=== PATIENT | female | born 1975 | race Caucasian/White ===

== ENCOUNTER 2016-09-01 13:53 | Emergency (ER) | payer OTHER ==
--- NOTE | 2016-09-01 14:20 | ERPHSYRPT ---
- History of Present Illness Time Seen by Provider: 09/01/16 14:16 Source: patient Exam Limitations: no limitations Patient Subjective Stated Complaint: pt states she has had a rash to bilateral lower legs for the past week. worse over the past 2 days. Triage Nursing Assessment: pt pink, warm, dry. bilateral red open areas to bilateral lower legs. Physician History: pt states she has had a rash to bilateral lower legs for the past week. worse over the past 2 days. Occurred: last week Allergies/Adverse Reactions: iron Adverse Reaction (Verified 09/01/16 14:09) Hx Tetanus, Diphtheria Vaccination/Date Given: Yes (up to date) Hx Influenza Vaccination/Date Given: No Hx Pneumococcal Vaccination/Date Given: No Immunizations Up to Date: Yes - Review of Systems Constitutional: No Symptoms Respiratory: No Symptoms Skin: Rash - Past Medical History Pertinent Past Medical History: Yes Neurological History: No Pertinent History ENT History: No Pertinent History Cardiac History: No Pertinent History Respiratory History: No Pertinent History Endocrine Medical History: No Pertinent History Musculoskeletal History: No Pertinent History GI Medical History: No Pertinent History History: No Pertinent History Psycho-Social History: No Pertinent History Female Reproductive Disorders: No Pertinent History - Past Surgical History Past Surgical History: Yes Musculoskeletal: Orthopedic Surgery Female Surgical History: Hysterectomy, Tubal Ligation, Other - Social History Smoking Status: Current every day smoker How long have you smoked: 18 Exposure to second hand smoke: Yes Drug Use: none Patient Lives Alone: No - Nursing Vital Signs Nursing Vital Signs: Initial Vital Signs Temperature 98.2 F Temperature Source Oral Pulse Rate 86 Respiratory Rate 18 Blood Pressure [Right Arm] 134/87 Pain Intensity 5 - Physical Exam General Appearance: no apparent distress Eyes, Ears, Nose, Throat Exam: normal ENT inspection Ankle Exam: bilateral ankle: other (rash on medial side of upper ankles) SpO2: 99 Oxygen Delivery: Room Air - Course Nursing assessment & vital signs reviewed: Yes - Progress Progress: unchanged Counseled pt/family regarding: diagnosis, need for follow-up - Departure Time of Disposition: 14:18 Departure Disposition: Home Clinical Impression: Dermatitis Condition: Stable Critical Care Time: No Referrals: ASHLEY MERRITT [Primary Care Provider] - Instructions: Atopic Dermatitis - Adult Additional Instructions: RASH 1. Depending on the reason for the rash, the instructions will differ. 2. If an antibiotic has been prescribed, take it as directed until gone. 3. If anti-fungals or shampoos are prescribed, use only as directed and follow specific instructions on package container. 4. Avoid hot showers/baths, as this may increase itching. 5. Calamine lotion or Aveeno Oatmeal baths may help itching. 6. See your family physician if these signs or symptoms persist for more than four days. Prescriptions: Mupirocin [Bactroban OINTMENT] 1 gm TP BID #60 tube Cephalexin Mh 500 mg [Keflex 500 mg] 500 mg PO Q6H #40 capsule Triamcinolone 0.1% Cream [Kenalog 0.1% Cream 15 gm] 1 gm TP QID #60 cream
[2016-09-01 14:30] VITALS: BP 122/85; PULSE 81; O2SAT 100
== END 2016-09-01 14:30 | disposition home or self-care (01) ==
LOC: ED 13:53
DX: L30.9 Dermatitis, unspecified (principal)
CPT/HCPCS: 99283

== ENCOUNTER 2017-01-27 12:05 | Emergency (ER) | payer OTHER | END 2017-01-27 12:20 | disposition left against medical advice (07) | LOC: ED 12:05 | DX: Z53.9 Procedure and treatment not carried out, unspecified reason (principal) ==

== ENCOUNTER 2017-11-28 06:28 | Emergency (ER) | payer OTHER ==
[2017-11-28 06:52] VITALS: BP 150/94; PULSE 81; O2SAT 97
--- NOTE | 2017-11-28 07:00 | ERPHSYRPT ---
- History of Present Illness Time Seen by Provider: 11/28/17 06:45 Source: patient Exam Limitations: no limitations Patient Subjective Stated Complaint: pt is alert and oriented. pt is ambulatory with a steady gait. pt comes in after being hit in the mouth by her horse 4-5 days ago. she has swelling to the left side of her lower face and jaw. upon inspection pt has 2 and one half teeth that are brown and blackened at the lower portion and appear to be decaying on her lower gum. Triage Nursing Assessment: see above Physician History: 42 y/o white female presents with 4 day h/o left lower toothache. pt has poor dentition and was also hit in the same area left lower jaw. jaw pain mild but toothache has persisted. waiting to hear from dentist for appt. Timing/Duration: persistent, days (4 days) Severity: mild ENT Location: dental Modifying Factors: Improves With: nothing, other (tried oragel but did not help) Associated Symptoms: denies symptoms Allergies/Adverse Reactions: iron Adverse Reaction (Verified 09/01/16 14:09) Hx Tetanus, Diphtheria Vaccination/Date Given: No Hx Influenza Vaccination/Date Given: No Hx Pneumococcal Vaccination/Date Given: No Immunizations Up to Date: Yes - Review of Systems Constitutional: No Symptoms Eyes: No Symptoms Ears, Nose, & Throat: Mouth Pain, Other (intra oral left lower gums/teeth) Respiratory: No Symptoms Cardiac: No Symptoms Abdominal/Gastrointestinal: No Symptoms Genitourinary Symptoms: No Symptoms Musculoskeletal: No Symptoms Skin: No Symptoms Neurological: No Symptoms Psychological: No Symptoms Endocrine: No Symptoms Hematologic/Lymphatic: No Symptoms Immunological/Allergic: No Symptoms - Past Medical History Pertinent Past Medical History: Yes Neurological History: No Pertinent History ENT History: No Pertinent History Cardiac History: No Pertinent History Respiratory History: No Pertinent History Endocrine Medical History: No Pertinent History Musculoskeletal History: No Pertinent History GI Medical History: No Pertinent History History: No Pertinent History Psycho-Social History: No Pertinent History Female Reproductive Disorders: Cervical Cancer - Past Surgical History Past Surgical History: Yes Musculoskeletal: Orthopedic Surgery Female Surgical History: Hysterectomy - Social History Smoking Status: Current every day smoker How long have you smoked: 18 Exposure to second hand smoke: Yes Drug Use: none Patient Lives Alone: No - Female History Hx Now: No - Nursing Vital Signs Nursing Vital Signs: Initial Vital Signs Pulse Rate 81 11/28/17 06:29 Respiratory Rate 18 11/28/17 06:29 Blood Pressure 150/94 11/28/17 06:29 O2 Sat by Pulse Oximetry 97 11/28/17 06:29 Pain Scale Pain Intensity 7 - Physical Exam Eye Exam: bilateral eye: normal inspection, PERRL, EOMI Ear Exam: bilateral ear: auricle normal Nasal Exam: normal inspection, No active bleeding, No discharge Throat Exam: pharynx normal, dental tenderness (poor dentition. 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, normal mood/affect, nml cerebellar function, nml station & gait Skin Exam: normal color, warm, dry SpO2 Interpretation: normal SpO2: 97 Oxygen Delivery: Room Air - Course Nursing assessment & vital signs reviewed: Yes Ordered Tests: Medication Summary Generic Name Dose Route Start Last Admin Trade Name Freq PRN Reason Stop Dose Admin Hydrocodone Bitart/Acetaminophen 1 tab 11/28/17 07:02 [place] 10/325 Mg Tablet PO 11/28/17 07:03 STAT ONE Amoxicillin 500 mg 11/28/17 07:03 Amoxil 500 Mg PO 11/28/17 07:04 STAT ONE - Progress Progress: unchanged Counseled pt/family regarding: diagnosis, need for follow-up - Departure Time of Disposition: 07:11 Departure Disposition: Home Clinical Impression: Pain, dental Condition: Stable Critical Care Time: No Additional Instructions: follow up with dentist for definitive care. add ibuprofen for pain Prescriptions: Amoxicillin 500 mg Cap [Amoxil 500 mg] 500 mg PO TID #30 capsule Tramadol HCl 50 mg [Ultram 50 mg] 50 mg PO TID PRN #15 tablet PRN Reason: Pain
[2017-11-28] MEDS ORDERED: Norco 10/325 MG Tablet PO ONE (07:02)
[2017-11-28] MEDS ORDERED: AMOXIL 500 MG PO ONE (07:03)
[2017-11-28] MEDS ORDERED: Norco 10/325 MG Tablet ONE (07:09)
[2017-11-28] MEDS ORDERED: AMOXIL 500 MG ONE (07:09)
== END 2017-11-28 07:31 | disposition home or self-care (01) ==
LOC: ED 06:28
DX: K08.89 Other specified disorders of teeth and supporting structures (principal); R68.84 Jaw pain
CPT/HCPCS: 99283; A9270-GY

== ENCOUNTER 2019-07-22 21:10 | Emergency (ER) | payer MEDICAID, OTHER ==
--- NOTE | 2019-07-22 21:23 | ERPHSYRPT ---
- History of Present Illness Time Seen by Provider: 07/22/19 21:12 Source: patient Exam Limitations: no limitations Physician History: Patient is here for left ankle swelling. Patient states that she is got a history of psoriasis. States that she is out of her medication at home. She noticed some redness, tenderness worsening over the past 2 to 3 days. Therefore , she arrives to the emergency department. No falls no trauma. No fever no chills no systemic signs of illness. Allergies/Adverse Reactions: iron Adverse Reaction (Verified 09/01/16 14:09) Hx Tetanus, Diphtheria Vaccination/Date Given: No Hx Influenza Vaccination/Date Given: No Hx Pneumococcal Vaccination/Date Given: No - Review of Systems Constitutional: No Fever, No Chills Eyes: No Symptoms Ears, Nose, & Throat: No Symptoms Respiratory: No Cough, No Dyspnea Cardiac: No Chest Pain, No Edema, No Syncope Abdominal/Gastrointestinal: No Abdominal Pain, No Nausea, No Vomiting, No Diarrhea Genitourinary Symptoms: No Dysuria Musculoskeletal: No Back Pain, No Neck Pain Skin: Other (Leg redness, tenderness), No Rash Neurological: No Dizziness, No Focal Weakness, No Sensory Changes Psychological: No Symptoms Endocrine: No Symptoms All Other Systems: Reviewed and Negative - Past Medical History Pertinent Past Medical History: Yes Neurological History: No Pertinent History ENT History: No Pertinent History Cardiac History: No Pertinent History Respiratory History: No Pertinent History Endocrine Medical History: No Pertinent History Musculoskeletal History: No Pertinent History GI Medical History: No Pertinent History History: No Pertinent History Psycho-Social History: No Pertinent History Female Reproductive Disorders: Cervical Cancer - Past Surgical History Past Surgical History: Yes Musculoskeletal: Orthopedic Surgery Female Surgical History: Hysterectomy - Social History Smoking Status: Current every day smoker How long have you smoked: 18 Exposure to second hand smoke: Yes Drug Use: none Patient Lives Alone: No - Physical Exam General Appearance: alert Eyes, Ears, Nose, Throat Exam: moist mucous membranes Neck Exam: non-tender, supple Cardiovascular/Respiratory Exam: chest non-tender, normal breath sounds, regular rate/rhythm, no respiratory distress Gastrointestinal/Abdominal Exam: non-tender, guarding Back Exam: normal inspection, No vertebral tenderness Neuro/Tendon Exam: normal sensation, normal motor functions Mental Status Exam: alert, oriented x 3, cooperative Skin Exam: normal color, warm, dry SpO2 Interpretation: normal Comments: Left leg no obvious deformity, sensation intact, 2+ capillary refill, 2 point tactile discrimination intact. 5 out of 5 strength. Full range of motion without pain. Compartments are soft, nontender. Overlying skin shows no tenting, bruising, ecchymosis. Patient has some redness, inflammation over the left medial ankle. Possible component of cellulitis. It is tender. - Progress Progress Note: 07/22/19 21:25 We will treat as psoriasis with possible cellulitis. Will give 5 days worth of steroids, doxycycline. Patient will need close follow-up with PCP. Return here for new or changing symptoms. Plan of care was discussed with patient and patient's family: all questions answered. They are agreeable to be discharged home and both verbal and printed discharge instructions were provided. The patient and patient's family agreed to seek outpatient follow up as discussed. They were given strict instructions to return to the emergency department for worsening symptoms or any other emergent concerns. They verbalized understanding. - Departure Departure Disposition: Home Clinical Impression: Cellulitis Condition: Stable Critical Care Time: No Referrals: ASHLEY MERRITT [Primary Care Provider] - Additional Instructions: See PCP for reexam in 24 to 48 hours. Return here for new or changing symptoms. Prescriptions: Doxycycline Hyclate 100 mg [Vibramycin 100 MG] 100 mg PO BID #14 tab Prednisone 10 mg [Deltasone 10 mg] 60 mg PO DAILY #12 tablet
[2019-07-22 21:30] VITALS: BP 134/95; PULSE 89; O2SAT 100
== END 2019-07-22 21:38 | disposition home or self-care (01) ==
LOC: ED 21:10
DX: L03.116 Cellulitis of left lower limb (principal)
CPT/HCPCS: 99283

== ENCOUNTER 2021-04-22 20:57 | Inpatient (IN) | payer MEDICAID, OTHER ==
[2021-04-22] MEDS ORDERED: Sodium Chloride 0.9% 1000 ML 1,000 ML IV STA (21:24)
[2021-04-22] MEDS ORDERED: Sodium Chloride 0.9% 1000 ML 1,000 ML ONE (21:30)
[2021-04-22 22:08] LABS: Hematocrit 43.2 % (35-47); Mean Cell Volume 89.4 fl (78-100); Mean Corpuscular Hgb Concent. 32.4 g/dl (32-36); Mean Platelet Volume 10.4 fl (7.5-11.0); Platelet Count 141 K/mm3 (150-450); Red Blood Count 4.83 M/mm3 (4.1-5.4); Red Cell Distribution Width 14.2 % (11.5-14.0); White Blood Count 5.4 K/mm3 (4.0-10.5)
[2021-04-22 22:35] LABS: INR 1.19 (0.8-3.0); PROTIME 14.1 SECONDS (9.4-12.5)
[2021-04-22 22:37] LABS: INFLUENZA A NEGATIVE (NEGATIVE); INFLUENZA B NEGATIVE (NEGATIVE); RESPIRATORY SYNCTIAL VIRUS NEGATIVE (Negative)
[2021-04-22 22:44] LABS: ALBUMIN 3.8 g/dL (3.5-5.0); ALKALINE PHOSPHATASE 56 U/L (38-126); ANION GAP 12.4 MEQ/L (5-15); BLOOD UREA NITROGEN 12 mg/dL (7-17); CHLORIDE 97 mmol/L (98-107); Carbon Dioxide 25 mmol/L (22-30); Creatinine 1 0.98 mg/dL (0.52-1.04); EST GLOMERULAR FILTRATION RATE > 60.0 ML/MIN; Glucose 101 mg/dL (74-106); NT PRO BNP 35.1 pg/mL (0-450); Potassium 3.9 mmol/L (3.5-5.1); SGOT/AST 55 U/L (14-36); SGPT/ALT 26 U/L (0-35); SODIUM 131 mmol/L (137-145); Total Protein 6.3 g/dL (6.3-8.2)
[2021-04-22 22:57] LABS: SARS-CoV-2 Xpert Express POSITIVE (NEGATIVE)
--- NOTE | 2021-04-22 23:10 | ERPHSYRPT ---
- History of Present Illness Time Seen by Provider: 04/22/21 21:50 Source: patient Exam Limitations: no limitations Patient Subjective Stated Complaint: pt states "I don't feel good." Triage Nursing Assessment: pt came into the er via wheelchair; pt is axo x4; c/o cough; pt states symptoms began 6 days ago; pt c/o N/V/D; c/o cough; c/o fever and chills; c/o headache and bodyache; pt states loss of taste and smell; pt is forcefully coughing and hacking; wheezing throughout all lobes; hyperactive bowel sounds in all quads; febrile 103.1; hypoxic at 86% on room air at time of arrival; pt put on 2 L nasal cannula and stating at 97% Physician History: Patient is a 45-year-old white female who presents with a 4-day to 6-day history of cough and congestion. She has had nausea vomiting and diarrhea for the past 2 days her temperature on arrival is 103.1 and her oxygen saturation on room air was 86 percent. Timing/Duration: day(s) (6) Cough Quality/Degree: productive cough Possible Cause: occasional episodes Modifying Factors: Improves With: coughing Associated Symptoms: fever, chest pain/soreness, cough, headache, other (Loss of taste and smell) Allergies/Adverse Reactions: iron Adverse Reaction (Verified 04/22/21 21:40) Home Medications: No Reportable Medications [No Reported Medications] 04/22/21 [History] Hx Tetanus, Diphtheria Vaccination/Date Given: No Hx Influenza Vaccination/Date Given: No Hx Pneumococcal Vaccination/Date Given: No Travel Risk - International Travel Have you traveled outside of the country in past 3 weeks: No - Coronavirus Screening Are you exhibiting any of the following symptoms?: Yes Symptoms: Fever, Cough: New Onset, Shortness of Breath, Vomiting/Diarrhea, Loss of Taste or Smell, Headaches/Body Aches/Fatigue Close contact with a COVID-19 positive Pt in past 14-21 Days: No - Vaccine Status Have you recieved a Covid-19 vaccination: No - Review of Systems Constitutional: No Fever, No Chills Eyes: No Symptoms Ears, Nose, & Throat: No Symptoms Respiratory: Cough, Dyspnea, Wheezing Cardiac: No Chest Pain, No Edema, No Syncope Abdominal/Gastrointestinal: Abdominal Pain, Nausea, Vomiting, Diarrhea Genitourinary Symptoms: No Dysuria Musculoskeletal: No Back Pain, No Neck Pain Skin: No Rash Neurological: No Dizziness, No Focal Weakness, No Sensory Changes Psychological: No Symptoms Endocrine: No Symptoms All Other Systems: Reviewed and Negative - Past Medical History Pertinent Past Medical History: Yes Neurological History: No Pertinent History ENT History: No Pertinent History Cardiac History: No Pertinent History Respiratory History: No Pertinent History Endocrine Medical History: No Pertinent History Musculoskeletal History: No Pertinent History GI Medical History: No Pertinent History History: No Pertinent History Psycho-Social History: No Pertinent History Female Reproductive Disorders: Cervical Cancer Other Medical History: anemia - Past Surgical History Past Surgical History: Yes Musculoskeletal: Orthopedic Surgery Female Surgical History: Hysterectomy - Social History Smoking Status: Former smoker How long have you smoked: 18 Exposure to second hand smoke: Yes Drug Use: none Patient Lives Alone: No - Female History Hx Now: No - Nursing Vital Signs Nursing Vital Signs: Initial Vital Signs Temperature 103.1 F 04/22/21 21:41 Pulse Rate 93 H 04/22/21 21:41 Respiratory Rate 24 04/22/21 21:41 Blood Pressure 103/73 04/22/21 21:41 O2 Sat by Pulse Oximetry 86 L 04/22/21 21:41 Pain Scale Pain Intensity 8 - Physical Exam General Appearance: mild distress Eye Exam: PERRL/EOMI, eyes nml inspection Ears, Nose, Throat Exam: normal ENT inspection, TMs normal, pharynx normal, moist mucous membranes Neck Exam: normal inspection, non-tender, supple, full range of motion Respiratory Exam: respiratory distress, crackles/rales, rhonchi, wheezing Cardiovascular Exam: regular rate/rhythm, normal heart sounds Gastrointestinal/Abdomen Exam: soft, No tenderness Back Exam: normal inspection, No CVA tenderness, No vertebral tenderness Extremity Exam: normal inspection, normal range of motion Neurologic Exam: alert, oriented x 3, cooperative, normal mood/affect, sensation nml, No motor deficits Skin Exam: normal color, warm, dry, No rash SpO2 Interpretation: hypoxic, O2 applied SpO2: 97 O2 Delivery: Nasal Cannula - Course Nursing assessment & vital signs reviewed: Yes EKG Interpreted by Me: RATE (92), NORMAL AXIS, NORMAL QRS, Non-specific ST Changes - Radiology Exams Chest X-ray Interpretation: Interpreted by me, Other (Bilateral basilar infiltrates) Ordered Tests: Active Orders 24 hr Category Date Time Status EKG-ER Only STAT Care 04/22/21 21:24 Active Oxygen-ED Only Nasal Cannula 4 lpm Care 04/22/21 21:24 Active CHEST 1 VIEW (PORTABLE) Stat Exams 04/22/21 21:25 Taken BLOOD CULTURE Stat Lab 04/22/21 22:20 Received CBC W DIFF Stat Lab 04/22/21 22:04 Completed CMP Stat Lab 04/22/21 22:20 Completed D-DIMER QUANTITATIVE Stat Lab 04/22/21 22:20 Completed Lactic Acid Stat Lab 04/22/21 22:00 Completed Manual Differential NC Stat Lab 04/22/21 22:04 Completed NT PRO BNP Stat Lab 04/22/21 22:20 Completed PROTIME WITH INR Stat Lab 04/22/21 22:20 Completed TROPONIN Q3H Lab 04/22/21 22:21 Completed TROPONIN Q3H Lab 04/23/21 00:30 Ordered TROPONIN Q3H Lab 04/23/21 03:30 Ordered TROPONIN Q3H Lab 04/23/21 06:30 Ordered TROPONIN Q3H Lab 04/23/21 09:30 Ordered UA W/RFX UR CULTURE Stat Lab 04/22/21 21:24 Ordered Medication Summary Discontinued Medications Generic Name Dose Route Start Last Admin Trade Name Freq PRN Reason Stop Dose Admin Sodium Chloride 1,000 mls @ 999 mls/hr 04/22/21 21:24 04/22/21 21:31 Sodium Chloride 0.9% 1000 Ml IV 04/22/21 22:24 999 mls/hr .Q1H1M STA Administration Sodium Chloride Confirm 04/22/21 21:30 Sodium Chloride 0.9% 1000 Ml Administered 04/22/21 21:31 Dose 1,000 mls @ ud .ROUTE .STK-MED ONE Lab/Rad Data: Laboratory Result Diagrams 04/22/21 22:04 04/22/21 22:20 Laboratory Results 04/22/21 04/22/21 04/22/21 Range/Units 22:21 22:20 22:20 WBC (4.0-10.5) K/mm3 RBC (4.1-5.4) M/mm3 Hgb (12.0-16.0) gm/dl Hct (35-47) % MCV (78-100) fl MCH (26-32) pg MCHC (32-36) g/dl RDW (11.5-14.0) % Plt Count (150-450) K/mm3 MPV (7.5-11.0) fl PT 14.1 H (9.4-12.5) SECONDS INR 1.19 (0.8-3.0) D-Dimer 581 H* (215-500) ng/mL Sodium 131 L (137-145) mmol/L Potassium 3.9 (3.5-5.1) mmol/L Chloride 97 L (98-107) mmol/L Carbon Dioxide 25 (22-30) mmol/L Anion Gap 12.4 (5-15) MEQ/L BUN 12 (7-17) mg/dL Creatinine 0.98 (0.52-1.04) mg/dL Estimated GFR > 60.0 ML/MIN Glucose 101 (74-106) mg/dL Lactic Acid (0.4-2.0) Calcium 8.0 L (8.4-10.2) mg/dL Total Bilirubin 0.50 (0.2-1.3) mg/dL AST 55 H (14-36) U/L ALT 26 (0-35) U/L Alkaline Phosphatase 56 (38-126) U/L Troponin I < 0.012 (0.000-0.034) ng/mL NT-Pro-B Natriuret Pep 35.1 (0-450) pg/mL Serum Total Protein 6.3 (6.3-8.2) g/dL Albumin 3.8 (3.5-5.0) g/dL Influenza Type A Ag (NEGATIVE) Influenza Type B Ag (NEGATIVE) RSV (PCR) (Negative) SARS-CoV-2 (PCR) (NEGATIVE) 04/22/21 04/22/21 04/22/21 Range/Units 22:04 22:00 21:40 WBC 5.4 (4.0-10.5) K/mm3 RBC 4.83 (4.1-5.4) M/mm3 Hgb 14.0 (12.0-16.0) gm/dl Hct 43.2 (35-47) % MCV 89.4 (78-100) fl MCH 29.0 (26-32) pg MCHC 32.4 (32-36) g/dl RDW 14.2 H (11.5-14.0) % Plt Count 141 L (150-450) K/mm3 MPV 10.4 (7.5-11.0) fl PT (9.4-12.5) SECONDS INR (0.8-3.0) D-Dimer (215-500) ng/mL Sodium (137-145) mmol/L Potassium (3.5-5.1) mmol/L Chloride (98-107) mmol/L Carbon Dioxide (22-30) mmol/L Anion Gap (5-15) MEQ/L BUN (7-17) mg/dL Creatinine (0.52-1.04) mg/dL Estimated GFR ML/MIN Glucose (74-106) mg/dL Lactic Acid 1.2 (0.4-2.0) Calcium (8.4-10.2) mg/dL Total Bilirubin (0.2-1.3) mg/dL AST (14-36) U/L ALT (0-35) U/L Alkaline Phosphatase (38-126) U/L Troponin I (0.000-0.034) ng/mL NT-Pro-B Natriuret Pep (0-450) pg/mL Serum Total Protein (6.3-8.2) g/dL Albumin (3.5-5.0) g/dL Influenza Type A Ag NEGATIVE (NEGATIVE) Influenza Type B Ag NEGATIVE (NEGATIVE) RSV (PCR) NEGATIVE (Negative) SARS-CoV-2 (PCR) POSITIVE A (NEGATIVE) - Progress Progress: unchanged Air Movement: fair Blood Culture(s) Obtained: No Antibiotics given: No Discussed with Dr.: Other (Dr Mariano) Will see patient in: hospital (full admit) - Departure Departure Disposition: In-patient Admission Clinical Impression: COVID-19 Condition: Fair Critical Care Time: No Referrals: ASHLEY MERRITT [Primary Care Provider] - Follow up/PCP as directed
[2021-04-23 00:01] LABS: Lymphocytes 25 % (24-44); Monocyte 8 % (0.0-12.0); Neutrophils 67 % (36.0-66.0); Platelet Estimate NORMAL (NORMAL); Total Cells Counted 100
[2021-04-23] MEDS ORDERED: TYLENOL EXTRA STRENGTH 500 MG ONE (01:18)
[2021-04-23] MEDS ORDERED: TYLENOL EXTRA STRENGTH 500 MG PO ONE (01:19)
[2021-04-23] MEDS ORDERED: Zofran 4 MG/2 ML VIAL IV PRN (02:57)
[2021-04-23] MEDS ORDERED: Sodium Chloride 0.9% 1000 ML 1,000 ML IV SCH (03:00)
[2021-04-23] MEDS ORDERED: REMDESIVIR 200 MG in Sodium Chloride 0.9% 250 ML 250 ML IV ONE (03:04)
[2021-04-23] MEDS ORDERED: Ativan 2 MG/1 ML VIAL IV PRN (03:05)
[2021-04-23] MEDS ORDERED: TYLENOL EXTRA STRENGTH 500 MG PO PRN (03:06)
[2021-04-23] MEDS ORDERED: REMDESIVIR IV ONE (03:12)
[2021-04-23] MEDS ORDERED: Sodium Chloride 0.9% 250 ML 250 ML IV ONE (03:12)
[2021-04-23 06:14] LABS: BASOPHIL % 0.2 % (0.0-0.4); Basophil (Absolute #) 0.01 (0-0.4); Eosinophil (Absolute #) 0 (0-0.5); Hematocrit 39.4 % (35-47); Hemoglobin 12.6 gm/dl (12.0-16.0); Lymphocyte (Absolute #) 1.79 (1.0-4.6); Lymphocytes % 40.2 % (24.0-44.0); Mean Cell Volume 90.8 fl (78-100); Mean Platelet Volume 10.4 fl (7.5-11.0); Monocyte (Absolute #) 0.25 (0.0-1.3); Monocytes % 5.6 % (0.0-12.0); Platelet Count 121 K/mm3 (150-450); Red Blood Count 4.34 M/mm3 (4.1-5.4); Red Cell Distribution Width 14.5 % (11.5-14.0); White Blood Count 4.5 K/mm3 (4.0-10.5)
[2021-04-23 06:41] LABS: ALKALINE PHOSPHATASE 44 U/L (38-126); ANION GAP 10.3 MEQ/L (5-15); BLOOD UREA NITROGEN 12 mg/dL (7-17); CHLORIDE 100 mmol/L (98-107); Calcium 7.3 mg/dL (8.4-10.2); Carbon Dioxide 26 mmol/L (22-30); Creatinine 1 0.94 mg/dL (0.52-1.04); EST GLOMERULAR FILTRATION RATE > 60.0 ML/MIN; Glucose 94 mg/dL (74-106); Potassium 3.8 mmol/L (3.5-5.1); SGOT/AST 49 U/L (14-36); SGPT/ALT 22 U/L (0-35); SODIUM 133 mmol/L (137-145); Total Protein 5.4 g/dL (6.3-8.2)
[2021-04-23 06:51] LABS: NT PRO BNP 32.6 pg/mL (0-450)
--- NOTE | 2021-04-23 08:44 | XRAY ---
Indication: Cough. Comparison: None Portable chest demonstrates mild bibasilar interstitial opacities without focal infiltrate, consolidation, or large effusion. Heart and bony thorax unremarkable.
[2021-04-23] MEDS: ENOXAPARIN SODIUM SQ SCH (10:10)
[2021-04-23] MEDS: HYDROCODONE-CHLORPHEN ER SUSP PO PRN ×2 (10:10→21:23)
[2021-04-23] MEDS: OLUMIANT PO SCH (10:11)
[2021-04-23 11:31] LABS: Slide Review 1 YES
[2021-04-23 12:28] LABS: Appearance SLIGHTLY CLOUDY (CLEAR); Bilirubin NEGATIVE (NEGATIVE); Blood NEGATIVE Ery/ul (0-5); Epithelial Cells RARE /HPF (FEW); Glucose NEGATIVE (NEGATIVE); Ketones SMALL (NEGATIVE); Leukocyte Esterase LARGE (NEGATIVE); Mucus SLIGHT /HPF (NEGATIVE); Nitrite NEGATIVE (NEGATIVE); Protein,Urine Dip NEGATIVE (Negative); Specific Gravity 1.018 (1.005-1.025); Urobilinogen 2 mg/dL (0-1)
[2021-04-23] MEDS: Ativan 1 MG PO PRN (16:41)
[2021-04-23] MEDS: Sodium Chloride 0.9% 1000 ML 1,000 ML IV SCH ×2 (16:41)
[2021-04-24 06:44] LABS: Hematocrit 39.8 % (35-47); Hemoglobin 12.6 gm/dl (12.0-16.0); Mean Cell Volume 90.9 fl (78-100); Mean Corpuscular Hemoglobin 28.8 pg (26-32); Mean Corpuscular Hgb Concent. 31.7 g/dl (32-36); Mean Platelet Volume 10.4 fl (7.5-11.0); Platelet Count 139 K/mm3 (150-450); Red Blood Count 4.38 M/mm3 (4.1-5.4); Red Cell Distribution Width 14.7 % (11.5-14.0); White Blood Count 5.2 K/mm3 (4.0-10.5)
--- NOTE | 2021-04-24 07:52 | HP ---
CHIEF COMPLAINT: Fever, cough, cannot get her breath, some diarrhea. Mother has COVID. HISTORY OF PRESENT ILLNESS: The patient has the above complaints for three or four days. She has not had any vaccinations. Her mother was here in the hospital for several days with similar type thing. She said she cannot eat or talk without coughing. She states she hurts all over. Pain scale is 8. Temperature went up to 103F at her house. MEDICATIONS: None. ALLERGIES: IRON. PAST MEDICAL/SURGICAL HISTORY: The patient had a radical hysterectomy sounds like for cervical cancer some years and states they told her that was cured. REVIEW OF SYSTEMS: HEENT: Headache, hoarse, sore throat and cough. CHEST: Aches all over, frequent nonstop cough. CVS: No history of heart attacks, heart failure, rheumatic fever. ABDOMEN: Somewhat nauseated. No vomiting or diarrhea. EXTREMITIES: Just aching all over. 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 PHYSICAL EXAMINATION: The patient is an appropriately aged 45-year-old white female who is hoarse and coughing all the time. Temperature in the emergency room was 103.3F, blood pressure 120/70. Pulse ox 95% on room air. HEENT: Pupils equal and reactive to light. Throat red, dry. CHEST: Few crackles bilateral. CVS: No murmurs or gallops. ABDOMEN: No tenderness or organomegaly. EXTREMITIES: No cyanosis. No calf tenderness. LAB DATA AND TESTS: D-dimer was minimally elevated at 581. White count 5.4, hemoglobin 14. Sodium 131, creatinine 0.98. IMPRESSION: The patient has COVID pneumonia. The patient has severe mild myalgia from the COVID, nonstop cough, decreased appetite, a little bit of diarrhea. PLAN: The patient will be treated with the usual COVID medications, fluids, Tussionex. PROGNOSIS: Good.
[2021-04-24] MEDS: ENOXAPARIN SODIUM SQ SCH (09:47)
[2021-04-24] MEDS: OLUMIANT PO SCH (09:47)
[2021-04-24] MEDS: HYDROCODONE-CHLORPHEN ER SUSP PO PRN ×2 (12:08→23:18)
[2021-04-24] MEDS: Sodium Chloride 0.9% 1000 ML 1,000 ML IV SCH (12:14)
[2021-04-24] MEDS: Protonix 40MG Tablet PO SCH (15:09)
[2021-04-24] MEDS: MAALOX ES 30 ML UNIT DOSE PO PRN (15:09)
[2021-04-24] MEDS ORDERED: REMDESIVIR 100 MG in Sodium Chloride 0.9% 100 ML BAG 100 ML IV SCH (22:00)
[2021-04-24] MEDS: Ativan 1 MG PO PRN (23:36)
[2021-04-24 23:55] VITALS: BP 119/70
[2021-04-25] MEDS: Sodium Chloride 0.9% 1000 ML 1,000 ML IV SCH (05:00)
[2021-04-25 07:26] VITALS: PULSE 75; O2SAT 92
[2021-04-25] MEDS: Protonix 40MG Tablet PO SCH (10:18)
[2021-04-25] MEDS: ENOXAPARIN SODIUM SQ SCH (10:18)
[2021-04-25] MEDS: MAALOX ES 30 ML UNIT DOSE PO PRN (10:19)
[2021-04-25] MEDS: OLUMIANT PO SCH (10:19)
[2021-04-25] MEDS ORDERED: ZOFRAN ODT 4 MG PO PRN (10:41)
== END 2021-04-25 10:54 | disposition home or self-care (01) | DRG 177 ==
LOC: ED 20:57 → MED SURG 04-23 02:22
PROVIDERS: ADMIT Family Medicine; ATTEND Family Medicine
DX: U07.1 COVID-19 (principal); J12.82 Pneumonia due to coronavirus disease 2019; M79.10 Myalgia, unspecified site; R19.7 Diarrhea, unspecified; Z20.828 Contact with and (suspected) exposure to other viral communicable diseases
CPT/HCPCS: 0241U; 36415; 71045; 80053; 81001; 82947; 83605; 83880; 84484; 85025; 85027; 85379; 85610; 87040; 87086; 93005; 94762; 96360; 99285; J1650; Q0162; A9270-GY

== ENCOUNTER 2021-11-25 14:31 | Emergency (ER) | payer OTHER ==
[2021-11-25 15:59] VITALS: O2SAT 99
[2021-11-25] MEDS ORDERED: TORAdol 30 mg Injection ONE (16:25)
[2021-11-25] MEDS ORDERED: TORAdol 30 mg Injection IM ONE (16:26)
[2021-11-25 16:30] VITALS: BP 142/87; PULSE 63
--- NOTE | 2021-11-25 16:34 | ERPHSYRPT ---
- History of Present Illness Time Seen by Provider: 11/25/21 14:33 Historian: patient Exam Limitations: no limitations Patient Subjective Stated Complaint: Pt was riding a horse and hit a slick spot on the pavement and the horse fell and the pt went down and hit her left ribs, left elbow and left side of head hit the pavement Triage Nursing Assessment: Pt brought to the ER by her mother, hypertensive, rates pain as 7/10, hard to take a deep breath, guarding left lateral ribs, denies pain with elbow at this time, lump on left side of head, pulses normal, skin n/w/d, no bruising at site of pain of ribs Physician History: 46 years old fairly healthy female presented in the ER after she fell off of a horse on the pavement 2 days ago and hit her left ribs/elbow/head against the pavement. No loss of consciousness. She has a goose egg on the left side of head with dull aching headache mild to moderate and having gradually increasing pain in the left lateral chest wall with some swelling. Pain is moderate inten sity sharp nature, more with twisting, taking a deep breath and movements in a certain position. No anterior chest pain, no abdominal pain no nausea or vomiting. Denies any focal numbness tingling or weakness. Patient did hit her left elbow but has no pain with movements and no swelling. Timing/Duration: day(s) (2), gradual onset, worse Activities at Onset: activity, rest Quality: sharpness Chest Pain Radiation: no radiation Severity of Pain-Max: moderate Severity of Pain-Current: moderate Modifying Factors: Worsens With: breathing, movement Associated Symptoms: hurts to breathe Prior Chest Pain/Cardiac Workup: no prior chest pain Nitro Today/Relief: no nitro taken today Aspirin Treatment Today: no aspirin today Allergies/Adverse Reactions: iron Adverse Reaction (Verified 11/25/21 14:46) Hx Tetanus, Diphtheria Vaccination/Date Given: No Hx Influenza Vaccination/Date Given: No Hx Pneumococcal Vaccination/Date Given: No Travel Risk - International Travel Have you traveled outside of the country in past 3 weeks: No - Coronavirus Screening Are you exhibiting any of the following symptoms?: No Close contact with a COVID-19 positive Pt in past 14-21 Days: No - Vaccine Status Have you recieved a Covid-19 vaccination: No - Review of Systems Constitutional: No Symptoms Eyes: No Symptoms Ears, Nose, & Throat: No Symptoms Respiratory: No Symptoms Cardiac: Chest Pain Abdominal/Gastrointestinal: No Symptoms Genitourinary Symptoms: No Symptoms Musculoskeletal: Fall, Injury Skin: No Symptoms Neurological: Headache Psychological: No Symptoms Endocrine: No Symptoms Hematologic/Lymphatic: No Symptoms Immunological/Allergic: No Symptoms - Past Medical History Pertinent Past Medical History: Yes Neurological History: No Pertinent History ENT History: No Pertinent History Cardiac History: No Pertinent History Respiratory History: No Pertinent History Endocrine Medical History: No Pertinent History Musculoskeletal History: No Pertinent History GI Medical History: No Pertinent History History: No Pertinent History Psycho-Social History: No Pertinent History Female Reproductive Disorders: Cervical Cancer Other Medical History: anemia - Past Surgical History Past Surgical History: Yes Neuro Surgical History: No Pertinent History Cardiac: No Pertinent History Respiratory: No Pertinent History Gastrointestinal: No Pertinent History Musculoskeletal: Orthopedic Surgery Female Surgical History: Hysterectomy - Social History Smoking Status: Current every day smoker How long have you smoked: 18 Exposure to second hand smoke: Yes Drug Use: none Patient Lives Alone: No - Female History Hx Now: (unkn) - Nursing Vital Signs Nursing Vital Signs: Initial Vital Signs Temperature 96.9 F 11/25/21 14:34 Pulse Rate 66 11/25/21 14:34 Blood Pressure 148/92 11/25/21 14:34 O2 Sat by Pulse Oximetry 100 11/25/21 14:34 Pain Scale Pain Intensity 3 - Physical Exam General Appearance: no apparent distress, alert Eye Exam: PERRL/EOMI, eyes nml inspection Ears, Nose, Throat Exam: normal ENT inspection, TMs normal, pharynx normal, moist mucous membranes, other (2 x 3 cm left posterior parietal area hematoma with no step in deformity.) Respiratory Exam: normal breath sounds, chest tenderness (Left lateral upper to mid chest wall tenderness. No crepitus. No paradoxical chest wall movements), lungs clear Cardiovascular Exam: regular rate/rhythm, normal heart sounds Gastrointestinal/Abdomen Exam: soft, normal bowel sounds, No tenderness, No guarding Back Exam: normal inspection, normal range of motion, No CVA tenderness Extremity Exam: normal inspection, normal range of motion, pelvis stable Neurologic Exam: alert, oriented x 3, cooperative, other spatial scientist II-XII nml as tested, normal mood/affect, nml cerebellar function, nml station & gait, sensation nml Skin Exam: normal color SpO2 Interpretation: normal SpO2: 99 O2 Delivery: Room Air Ordered Tests: Active Orders 24 hr Category Date Time Status CERVICAL SPINE WO CONTRAST [CT] Stat Exams 11/25/21 14:46 Completed CHEST WITHOUT CONTRAST [CT] Stat Exams 11/25/21 14:45 Completed HEAD WITHOUT CONTRAST [CT] Stat Exams 11/25/21 14:46 Completed Medication Summary Discontinued Medications Generic Name Dose Route Start Last Admin Trade Name Lena PRN Reason Stop Dose Admin Ketorolac Tromethamine Confirm 11/25/21 16:25 Ketorolac Tromethamine 30 Mg/Ml Inj Administered 11/25/21 16:26 Dose 30 mg .ROUTE .STK-MED ONE Ketorolac Tromethamine 30 mg 11/25/21 16:26 11/25/21 16:26 Ketorolac Tromethamine 30 Mg/Ml Inj IM 11/25/21 16:27 30 mg STAT ONE Administration - Progress Progress: improved Air Movement: good Progress Note: 11/25/21 16:32 46 years old is evaluated for rib pain and a headache with a parietal hematoma. CT head cervical spine negative for any acute trauma related findings. CT chest without contrast is negative for rib fracture, Nema/hemothorax. She is given Toradol for symptomatic relief. I believe patient has chest wall contusion, recommended deep breathing exercises, NSAIDs and outpatient follow- up. Discussed signs symptoms of worsening needing return to ER which she seems understanding. Stable for discharge. 11/25/21 22:12 Radiologist called back with a discrepancy in preliminary read showing some rib fractures without pulmonary contusion, hemo-/pneumothorax. Called patient back and will send pain medications. Blood Culture(s) Obtained: No Antibiotics given: No Counseled pt/family regarding: diagnosis, need for follow-up, rad results - Departure Departure Disposition: Home Clinical Impression: Chest wall contusion, Scalp contusion, Fall, Ribs, multiple fractures Condition: Stable Critical Care Time: No Referrals: ASHLEY MERRITT [Primary Care Provider] - Follow Up with PCP/3 days Instructions: Bruised Rib Additional Instructions: Take Tylenol/ibuprofen as needed. Do deep breathing exercises. Follow-up with primary care for reevaluation. Return to ER for worsening chest pain or if having difficulty breathing, productive cough etc. Prescriptions: Hydrocodone/Acetaminophen [Hydrocodone-Acetamin 5-325 mg] 1 tab PO Q6HPRN PRN 3 Days #12 tablet MDD 4 PRN Reason: Pain Ibuprofen 600 mg PO Q6HPRN PRN 10 Days #20 tablet PRN Reason: Pain
--- NOTE | 2021-11-25 17:58 | XRAY ---
Indication: Left-sided pain following head injury following falling from horse 2 days ago. Multiple contiguous axial images obtained through the head without contrast. Comparison: None Normal appearing brain parenchyma, ventricles, and bony calvarium. Small high left parietal scalp hematoma. Visualized paranasal sinuses and mastoid air cells are clear. Impression: Left parietal scalp hematoma. Remaining CT head without contrast exam is normal. Comment: Preliminary interpretation made by [facility]. No critical discrepancy.
--- NOTE | 2021-11-25 18:00 | XRAY ---
Indication: Left-sided pain following head injury following falling from horse 2 days ago. Multiple contiguous axial images obtained through the cervical spine. Sagittal and coronal reformatted images obtained. Comparison: None Axial images negative for acute fracture, suspicious bony lesions, or spinal canal stenosis. Minimal/mild C5-C7 degenerative endplate spurring and mild/moderate multilevel bilateral degenerative facet hypertrophy. Sagittal and coronal reformatted images demonstrate normal alignment. C6-C7 disc space loss. No acute compression fracture, subluxation, or jumped facet. Normal appearing craniocervical junction. Visualized noncontrasted soft tissues are unremarkable. CT chest reported separately. Impression: 1. Negative acute fracture/subluxation. 2. Multilevel degenerative changes. Comment: Preliminary interpretation made by [facility]. No critical discrepancy.
--- NOTE | 2021-11-25 18:08 | XRAY ---
Indication: Left-sided pain following head injury following falling from horse 2 days ago. Multiple contiguous axial images obtained through the chest without contrast. Comparison: None Lungs demonstrates diffuse centrilobular emphysema with mild right lower lobe subsegmental atelectasis/scarring. No suspicious pulmonary mass, infiltrate, effusion, or pneumothorax. Heart not enlarged. Aorta is normal in course and caliber. No pathologic mediastinal lymphadenopathy. Bony thorax intact demonstrates left lateral 3-4 cortical rib fractures and minimally displaced posterior lateral left 5 rib fracture. Minimal degenerative changes throughout the spine. Limited upper abdomen demonstrates nonobstructing left renal punctate calculus. Impression: 1. Left 3-5 rib fractures without pneumothorax/hemothorax. 2. Chronic findings including pulmonary emphysema, right lower lobe subsegmental atelectasis/scarring and nonobstructing left renal punctate calculus. Comment: Preliminary interpretation made by [facility] who does not report rib fractures. Telephone report given to Dr. De Souza at 1805 hrs. on November 25, 2021.
== END 2021-11-25 16:44 | disposition home or self-care (01) ==
LOC: ED 14:31
DX: S22.42XA Multiple fractures of ribs, left side, initial encounter for closed fracture (principal); S00.03XA Contusion of scalp, initial encounter; S20.212A Contusion of left front wall of thorax, initial encounter; V80.010A Animal-rider injured by fall from or being thrown from horse in noncollision accident, initial encounter; Y93.52 Activity, horseback riding; R51.9 Headache, unspecified; Z72.0 Tobacco use; Z28.310 Unvaccinated for COVID-19; Z79.891 Long term (current) use of opiate analgesic
CPT/HCPCS: 70450; 71250; 72125; 96372; 99283; J1885